=== PATIENT | male | born 1945 | race Caucasian/White ===

== ENCOUNTER 2017-03-26 02:56 | Emergency (ER) | payer MEDICARE, BC ==
[~2017-03-26] VITALS: Ht 182.9 cm; Wt 83.9 kg
[~2017-03-26 02:56] MED LIST: AMLO2.5T PO; ASPI325T8 PO; CRESTOR10 MG PO; TELM40TA PO
[2017-03-26] MEDS ORDERED: fentaNYL PF VIAL 100 MCG/2 ML VIAL IV PRN (03:30)
[2017-03-26 03:37] LABS: BASO # 0.1 x10^3/uL (0.0-0.2); BASO % 1 % (0-3); EOS % 2 % (0-3); HEMATOCRIT 50.6 % (39.0-53.0); HEMOGLOBIN 17.4 g/dL (13.0-17.5); LYMPH # 1.3 x10^3/uL (1.0-4.8); LYMPH % 14 % (24-48); MEAN CORPUSCULAR HEMOGLOBIN 31 pg (25-35); MEAN CORPUSCULAR HGB CONC 34 g/dL (31-37); MEAN CORPUSCULAR VOLUME 89 fL (79-100); MONO % 9 % (0-9); NEUT % 75 % (31-73); PLATELET COUNT 199 x10^3/uL (140-400); RED BLOOD COUNT 5.69 x10^6/uL (4.30-5.70); RED CELL DISTRIBUTION WIDTH 12.8 % (11.5-14.5); WHITE BLOOD COUNT 9.5 x10^3/uL (4.0-11.0)
[2017-03-26 03:45] LABS: BILIRUBIN,URINE NEGATIVE (NEG); GLUCOSE,URINE NEGATIVE (NEG); NITRITE,URINE NEGATIVE (NEG); PH,URINE 6.5; PROTEIN,URINE NEGATIVE (NEG-TRACE); UROBILINOGEN,URINE 0.2 mg/dL (0.2 mg/dL)
[2017-03-26 03:47] LABS: CALCIUM 9.3 mg/dL (8.5-10.1); GFR 73.7; POTASSIUM 3.7 mmol/L (3.5-5.1)
[2017-03-26 03:52] LABS: ALBUMIN/GLOBULIN RATIO 1.2 (1.0-1.7); TOTAL BILIRUBIN 0.8 mg/dL (0.2-1.0); TOTAL PROTEIN 7.4 g/dL (6.4-8.2)
[2017-03-26 03:52] LABS: BACTERIA,URINE 0 /HPF (0-FEW); RBC,URINE TNTC /HPF (0-2); WBC,URINE OCC /HPF (0-4)
[2017-03-26] MEDS ORDERED: IV NORMAL SALINE 1000ML BAG 1,000 ML IV SCH (04:00)
--- NOTE | 2017-03-26 04:03 | ED.ADGEN ---
Past Medical History Past Medical History: High Cholesterol, Hypertension, [place] Past Surgical History: Other Additional Past Surgical Histo: right shoulder surgery, hernia repair Alcohol Use: None Drug Use: None Adult General Chief Complaint Chief Complaint: BACK PAIN OR INJURY HPI HPI Patient is a 71 year old man, history of hypertension, hypercholesterolemia, [place] , renal calculi, who presents to the emergency department with a complaint of right-sided back pain. Patient denies any discrete injury, states however that he began noticing symptoms yesterday after he was mowing the lawn. He states that he was awoken from sleep by an aching stabbing pain located in the right flank, which is now resolved, and that he "broke into a cold sweat". He denies any urinary complaints, states that he has not had any nausea or vomiting, any diarrhea, any weakness, numbness, tingling, changes in bowel or bladder habits or loss of control, rashes, chest pain, shortness breath, or swelling of the extremities. Patient states he is experiencing no pain currently. Has not noted any hematuria, discharge or pain with urination. Review of Systems Review of Systems Constitutional: Denies fever or chills. [] Eyes: Denies change in visual acuity. [] HENT: Denies nasal congestion or sore throat. [] Respiratory: Denies cough or shortness of breath. [] Cardiovascular: Denies chest pain or edema. [] GI: Denies abdominal pain, nausea, vomiting, bloody stools or diarrhea. [] : Denies dysuria. [] Musculoskeletal: Right flank pain, no joint pain. Integument: Denies rash. [] Neurologic: Denies headache, focal weakness or sensory changes. [] Endocrine: Denies polyuria or polydipsia. [] Lymphatic: Denies swollen glands. [] Psychiatric: Denies depression or anxiety. [] Current Medications Current Medications Current Medications Medications (Trade) Dose Ordered Sig/Conchita Start Time Stop Time Status Last Admin Dose Admin Fentanyl Citrate (Fentanyl 2ml Vial) 25 mcg PRN Q15MIN PRN 03/26/17 03:30 03/26/17 05:02 DC 03/26/17 03:51 25 MCG Ketorolac Tromethamine (Toradol) 10 mg 1X ONCE 03/26/17 05:00 03/26/17 05:01 DC 03/26/17 04:36 10 MG Ondansetron HCl (Zofran) 4 mg 1X ONCE 03/26/17 05:00 03/26/17 05:01 DC 03/26/17 04:36 4 MG Oxycodone HCl (Roxicodone) 10 mg 1X ONCE 03/26/17 05:00 03/26/17 05:01 DC 03/26/17 04:36 10 MG Sodium Chloride 1,000 ml @ 1,000 mls/hr Q1H 03/26/17 04:00 03/26/17 04:59 DC 03/26/17 03:51 1,000 MLS/HR Tamsulosin HCl (Flomax) 0.4 mg 1X ONCE 03/26/17 05:00 03/26/17 05:01 DC 03/26/17 04:36 0.4 MG Allergies Allergies Allergies Coded Allergies Type Severity Reaction Last Updated Verified acetaminophen Adverse Reaction Intermediate nausea and vomiting 02/07/15 Yes propoxyphene Adverse Reaction Intermediate nausea and vomiting 02/07/15 Yes Physical Exam Physical Exam Constitutional: Well developed, well nourished, no acute distress, non-toxic appearance. [] HENT: Normocephalic, atraumatic, bilateral external ears normal, oropharynx moist, no oral exudates, nose normal. [] Eyes: PERRLA, EOMI, conjunctiva normal, no discharge. [] Neck: Normal range of motion, no tenderness, supple, no stridor. [] Cardiovascular:Heart rate regular rhythm, no murmur, S1, S2, no rubs or gallops. [] Lungs & Thorax: Bilateral breath sounds clear to auscultation, no wheezing, rhonchi, rales. No chest or crepitus or tenderness. [] Abdomen: Bowel sounds normal, soft, no tenderness, no rebound, rigidity, no guarding, no masses, no pulsatile masses. [] Skin: Warm, dry, no erythema, no rash. [] Back: No midline or paraspinal tenderness, no CVA tenderness. Unable to reproduce symptoms with palpation.[] Extremities: No tenderness, no cyanosis, no clubbing, ROM intact, no edema. [] Neurologic: Alert and oriented X 3, normal motor function, normal sensory function, no focal deficits noted. [] Psychologic: Affect normal, judgement normal, mood normal. [] Current Patient Data Vital Signs Vital Signs Date Time Temp Pulse Resp B/P (MAP) Pulse Ox O2 Delivery O2 Flow Rate FiO2 03/26/17 04:17 56 16 142/71 (94) 96 Room Air 03/26/17 03:10 97.5 97.5 Lab Values Laboratory Tests Test 03/26/17 03:25 03/26/17 03:29 White Blood Count 9.5 x10^3/uL (4.0-11.0) Red Blood Count 5.69 x10^6/uL (4.30-5.70) Hemoglobin 17.4 g/dL (13.0-17.5) Hematocrit 50.6 % (39.0-53.0) Mean Corpuscular Volume 89 fL (79-100) Mean Corpuscular Hemoglobin 31 pg (25-35) Mean Corpuscular Hemoglobin Concent 34 g/dL (31-37) Red Cell Distribution Width 12.8 % (11.5-14.5) Platelet Count 199 x10^3/uL (140-400) Neutrophils (%) (Auto) 75 % (31-73) H Lymphocytes (%) (Auto) 14 % (24-48) L Monocytes (%) (Auto) 9 % (0-9) Eosinophils (%) (Auto) 2 % (0-3) Basophils (%) (Auto) 1 % (0-3) Neutrophils # (Auto) 7.1 x10^3uL (1.8-7.7) Lymphocytes # (Auto) 1.3 x10^3/uL (1.0-4.8) Monocytes # (Auto) 0.8 x10^3/uL (0.0-1.1) Eosinophils # (Auto) 0.2 x10^3/uL (0.0-0.7) Basophils # (Auto) 0.1 x10^3/uL (0.0-0.2) Sodium Level 142 mmol/L (136-145) Potassium Level 3.7 mmol/L (3.5-5.1) Chloride Level 104 mmol/L (98-107) Carbon Dioxide Level 28 mmol/L (21-32) Anion Gap 10 (6-14) Blood Urea Nitrogen 13 mg/dL (8-26) Creatinine 1.0 mg/dL (0.7-1.3) Estimated GFR (Cockcroft-Gault) 73.7 BUN/Creatinine Ratio 13 (6-20) Glucose Level 98 mg/dL (70-99) Calcium Level 9.3 mg/dL (8.5-10.1) Total Bilirubin 0.8 mg/dL (0.2-1.0) Aspartate Amino Transferase (AST) 30 U/L (15-37) Alanine Aminotransferase (ALT) 35 U/L (16-63) Alkaline Phosphatase 108 U/L (46-116) Total Protein 7.4 g/dL (6.4-8.2) Albumin 4.0 g/dL (3.4-5.0) Albumin/Globulin Ratio 1.2 (1.0-1.7) Urine Collection Type Unknown Urine Color Yellow Urine Clarity Clear Urine pH 6.5 Urine Specific [place] 1.015 Urine Protein Negative mg/dL (NEG-TRACE) Urine Glucose (UA) Negative mg/dL (NEG) Urine Ketones (Stick) Negative mg/dL (NEG) Urine Blood Large (NEG) Urine Nitrite Negative (NEG) Urine Bilirubin Negative (NEG) Urine Urobilinogen Dipstick 0.2 mg/dL (0.2 mg/dL) Urine Leukocyte Esterase Negative (NEG) Urine RBC Tntc /HPF (0-2) Urine WBC Occ /HPF (0-4) Urine Squamous Epithelial Cells None /LPF Urine Bacteria 0 /HPF (0-FEW) Urine Mucus Mod /LPF Laboratory Tests 03/26/17 03:25 Laboratory Tests 03/26/17 03:25 EKG EKG ECG: Rhythm strip: Heart rate 62 bpm, sinus rhythm, no ectopy. As interpreted by me.[] Radiology/Procedures Radiology/Procedures [][facility] [address] [place] [address] IMAGING REPORT Signed PATIENT: JENNA BURROUGHS ACCOUNT: [id number] : 1945 LOCATION: ER AGE: 71 SEX: M EXAM STATUS: REG ER ORD. PHYSICIAN: MARIA GUADALUPE MARTIN DO REASON: R flank pain PROCEDURE: CT ABDOMEN PELVIS WO CONTRAST INDICATION: right flank pain COMPARISON: None. TECHNIQUE: Axial CT images obtained through the abdomen and pelvis without contrast. One or more of the following individualized dose reduction techniques were utilized for this examination: 1. Automated exposure control; 2. Adjustment of the mA and/or kV according to patient size; 3. Use of iterative reconstruction technique. FINDINGS: Limited assessment of solid organ structures and vasculature secondary to lack of intravenous contrast. Mild probable atelectasis at lung bases. Small hiatal hernia. Partial visualization of coronary artery calcific atherosclerosis. Moderate to severe calcific atherosclerosis. Moderate fat-containing inguinal hernias. No intrahepatic bile duct dilation. No peripancreatic edema. Splenic calcified granulomas. No left-sided hydronephrosis. Urinary bladder is largely decompressed. Nonobstructive right renal stones. There is also right-sided hydronephrosis and hydroureter with a suspected 2 mm right distal ureter stone. There is some induration of the fat anterior to the urinary bladder on the right. Colonic diverticulosis. Appendix does not appear grossly inflamed. No dilated loops of bowel to suggest obstruction. Degenerative changes spine. Mild scoliotic curvature of spine. Multilevel central canal and neural foraminal stenosis. IMPRESSION: Right-sided hydronephrosis and hydroureter with distal ureter stone. There is some soft tissue density seen anterior to the urinary bladder on the right of unknown etiology. Could be from causes such as confluent fibrosis within the region but would also correlate with history of trauma to ensure it is not from a small amount of blood in the area. Would consider obtaining a follow-up CT in a few months to ensure no growth to exclude neoplastic causes. Electronically signed by: Giacomo Wang MD (03/26/2017 4:04 AM) [facility] DICTATED and SIGNED BY: GIACOMO WANG MD DATE: 03/26/17 0356 CC: DARLENE ARMSTRONG MD; MARIA GUADALUPE MARTIN DO ~ Course & Med Decision Making Course & Med Decision Making Pertinent Labs and Imaging studies reviewed. (See chart for details) Patient patient's history and examination, with inability to elicit musculoskeletal symptoms, urinalysis obtained along with laboratory studies, and CT noncontrast of the abdomen and pelvis. Urinalysis revealed too numerous to count red blood cells, with no evidence of infection or other abnormalities. Patient patient's history and examination, concern for recurrent renal calculi. CT obtained, reveals a 2 mm renal calculi in the distal right ureter, with hydronephrosis and hydroureter. No evidence of surrounding fluid collection or inflammation. Patient also noted to have a tissue density in the anterior portion of the right bladder, concern for possible small amount of bleeding, versus a mass that could potentially be malignant. I did discuss findings as above with patient in detail at bedside. Discussed that patient will be a little to pass this calculus, as he has previously, due to the size, and will be prescribed medications to assist this process, including Zofran, naproxen, Flomax, and oxycodone. Patient was given a dose of oxycodone additional dose of fentanyl in the ED, resting comfortably at this time. Patient did tolerate oral meds without issue. Also discussed with patient the importance of follow-up for additional evaluation of this soft tissue density to rule out any concerning pathology. Patient does have no history of trauma, and has not experiencing any abdominal pain. We discussed concerning symptoms that prompt return to the ED, importance of follow-up, and medication directions and precautions. Patient voiced understanding and agreement with plan as stated. Did tolerate medications as stated without issue, comfortable at time of discharge home with with plan and precautions as above, prescriptions as stated. Dragon Disclaimer Dragon Disclaimer This electronic medical record was generated, in whole or in part, using a voice recognition dictation system. Departure Impression: Primary Impression: Hydronephrosis with ureteral calculus Disposition: HOME, SELF-CARE Condition: IMPROVED Scripts Ondansetron Hcl (ZOFRAN) 4 Mg Tablet 1 TAB PO PRN Q8HRS Y for NAUSEA/VOMITING, #12 TAB Prov: MARIA GUADALUPE MARTIN DO 03/26/17 Tamsulosin Hcl (FLOMAX) 0.4 Mg Cap.er.24h 0.4 MG PO DAILY for 3 Days, #3 TAB Prov: MARIA GUADALUPE MARTIN DO 03/26/17 Oxycodone Hcl (OXYCODONE HCL) 5 Mg Tablet 1-2 TAB PO PRN Q6HRS Y for PAIN, #12 TAB Prov: MARIA GUADALUPE MARTIN DO 03/26/17 Naproxen (NAPROXEN) 250 Mg Tablet 250 MG PO PRN TID Y for PAIN, #10 Prov: MARIA GUADALUPE MARTIN DO 03/26/17 MARIA GUADALUPE MARTIN DO Mar 26, 2017 04:03
--- NOTE | 2017-03-26 04:08 | RAD ---
INDICATION: right flank pain COMPARISON: None. TECHNIQUE: Axial CT images obtained through the abdomen and pelvis without contrast. One or more of the following individualized dose reduction techniques were utilized for this examination: 1. Automated exposure control; 2. Adjustment of the mA and/or kV according to patient size; 3. Use of iterative reconstruction technique. FINDINGS: Limited assessment of solid organ structures and vasculature secondary to lack of intravenous contrast. Mild probable atelectasis at lung bases. Small hiatal hernia. Partial visualization of coronary artery calcific atherosclerosis. Moderate to severe calcific atherosclerosis. Moderate fat-containing inguinal hernias. No intrahepatic bile duct dilation. No peripancreatic edema. Splenic calcified granulomas. No left-sided hydronephrosis. Urinary bladder is largely decompressed. Nonobstructive right renal stones. There is also right-sided hydronephrosis and hydroureter with a suspected 2 mm right distal ureter stone. There is some induration of the fat anterior to the urinary bladder on the right. Colonic diverticulosis. Appendix does not appear grossly inflamed. No dilated loops of bowel to suggest obstruction. Degenerative changes spine. Mild scoliotic curvature of spine. Multilevel central canal and neural foraminal stenosis. IMPRESSION: Right-sided hydronephrosis and hydroureter with distal ureter stone. There is some soft tissue density seen anterior to the urinary bladder on the right of unknown etiology. Could be from causes such as confluent fibrosis within the region but would also correlate with history of trauma to ensure it is not from a small amount of blood in the area. Would consider obtaining a follow-up CT in a few months to ensure no growth to exclude neoplastic causes. Electronically signed by: Jorge Acuña MD (03/26/2017 4:04 AM) [facility]
[2017-03-26 04:17] VITALS: BP 142/71
[2017-03-26] MEDS ORDERED: ONDA4TAB7 PO (04:39)
[2017-03-26] MEDS ORDERED: NAPR250T6 PO (04:39)
[2017-03-26] MEDS ORDERED: OXYC5TAB95 PO (04:39)
[2017-03-26] MEDS ORDERED: TAMS0.4C97 PO (04:39)
[2017-03-26] MEDS ORDERED: oxyCODONE IR 5 MG TABLET PO ONE (05:00)
[2017-03-26] MEDS ORDERED: ONDANSETRON PF 4 MG/2 ML VIAL. IV ONE (05:00)
[2017-03-26] MEDS ORDERED: TAMSULOSIN 0.4 MG CAP.ER.24H. PO ONE (05:00)
[2017-03-26] MEDS ORDERED: KETOROLAC 15 MG/ML VIAL. IV ONE (05:00)
== END 2017-03-26 05:02 | disposition home or self-care (01) ==
LOC: ER 02:56
DX: N13.2 Hydronephrosis with renal and ureteral calculous obstruction (principal); I10 Essential (primary) hypertension; E78.00 Pure hypercholesterolemia, unspecified; I25.2 Old myocardial infarction
CPT/HCPCS: 36415; 74176; 80053; 81001; 85025; 96361; 96374; 96375; 99285; J1885; J2405; J3010; J7030

== ENCOUNTER → 2019-03-09 | Outpatient (CLI) | payer MEDICARE, BC ==
[~2019-03-09] MED LIST changes: -AMLO2.5T PO; +AMLO2.5T5 PO; +NAPR250T6 PO; +ONDA4TAB7 PO; +OXYC5TAB4 PO; +TAMS0.4C97 PO
--- NOTE | 2019-03-09 13:07 | KCIC ---
MRI Lumbar Spine without contrast History: Lumbar radiculopathy, chronic low back pain worse this year especially with walking Technique: Multiplanar, multi sequential noncontrast MR imaging was performed of the lumbar spine. Comparison: None Findings: There is transitional anatomy of the lumbar spine. For the purpose of this report, most inferior fully formed intervertebral disc space is considered L5-S1 with assumption of 5 lumbar type vertebral bodies. There is a rudimentary, incompletely formed intervertebral disc space at what is considered S1-S2. Lumbar vertebral body stature is overall maintained. There is multilevel variable advanced degenerative disc disease throughout lumbar spine. There is minimal posterior subluxation L5 relative to S1, L4 relative to L5, L3 relative to L4, L2 relative to L3. There is straightening of the lumbar spine, mild reversal of the lordotic curvature at L2. There is variable mild endplate edema greatest L3-4 and L5-S1 and to lesser degree at L4-5, L1-2, and T12-L1 likely reactive/degenerative in etiology. There is mild dextroscoliosis centered near L3. L1-L2: There is minimal disc osteophyte complex. There is mild indentation upon the ventral thecal sac. There is very mild narrowing of the far left lateral recess. Neural foramina are adequate. L2-L3: There is very minimal disc osteophyte complex. There is minimal indentation upon the ventral thecal sac greater in the left lateral recess, spinal canal not significantly narrowed. There is mild facet degenerative change. Neural foramina are adequate. Disc osteophyte complex is near the extraforaminal right L2 nerve root without significant displacement. L3-L4: There is minimal disc osteophyte complex superimposed on the posteriorly subluxed L3 vertebral body margin with mild indentation upon the ventral thecal sac greater in the left lateral recess. There is mild narrowing of the far left lateral recess with degree of contact descending left L4 nerve root. There is mild facet degenerative change and buckling of the ligamentum flavum. There is moderate to severe narrowing of the left neural foramen by facet and disc osteophyte complex, disc osteophyte complex also near the extraforaminal left L3 nerve root without significant displacement. Right neural foramen is overall adequate. L4-L5: There is minimal disc osteophyte complex and bulge, mild indentation upon the ventral thecal sac. There is mild narrowing of the far left lateral recess, bulge also near the descending right L5 nerve root without significant displacement. There is mild buckling of the ligamentum flavum greater on the left. There is mild facet hypertrophic change. There is moderate to severe narrowing of the left neural foramen by disc osteophyte complex and facet, disc osteophyte complex also contacting undersurface of proximal extraforaminal left L4 nerve root. There is moderate narrowing of the right neural foramen. L5-S1: There is disc osteophyte complex, superimposed approximate 2-3 mm AP protrusion greatest centrally and in the right lateral recess. There is moderate right lateral recess stenosis and contact of the descending right S1 nerve root with mild posterior displacement. There is mild buckling of the ligamentum flavum and mild to moderate facet degenerative change. There is severe narrowing of the right neural foramen by disc osteophyte complex and facet with impingement exiting right L5 nerve root extending to extraforaminal region. There is severe narrowing of the left neural foramen with contact exiting left L5 nerve root by disc osteophyte complex extending to proximal extraforaminal region. Impression: 1. There appears to be transitional anatomy, most inferior fully formed intervertebral disc space considered L5-S1. There is multilevel advanced lumbar degenerative disc disease, multilevel spondylosis, and abnormal alignment as stated. There is multilevel facet degenerative change. There is lumbar dextroscoliosis. 2. There is variable lateral recess stenosis as stated greatest on the right L5-S1 at which there is contact and mild posterior displacement of the descending right S1 nerve root, lesser degree of mild left lateral recess stenosis L4-L5 and L3-L4. 3. There is multilevel neural foramina compromise, severe narrowing bilaterally greater on the right at L5-S1 with contact exiting L5 nerve roots. There is other neural foramina compromise such as left greater than right at L4-5 and on the left at L3-4. Electronically signed by: Mp Mesa MD (03/09/2019 1:03 PM) [facility]
== END | disposition home or self-care (01) ==
LOC: KCIC MRI 09:47
PROVIDERS: ATTEND Anesthesiology
DX: M51.16 Intervertebral disc disorders with radiculopathy, lumbar region (principal); M53.3 Sacrococcygeal disorders, not elsewhere classified; M48.07 Spinal stenosis, lumbosacral region; M47.26 Other spondylosis with radiculopathy, lumbar region; M47.818 Spondylosis without myelopathy or radiculopathy, sacral and sacrococcygeal region; M25.78 Osteophyte, vertebrae; M89.38 Hypertrophy of bone, other site; G89.29 Other chronic pain; M53.2X7 Spinal instabilities, lumbosacral region; Z88.8 Allergy status to other drugs, medicaments and biological substances
CPT/HCPCS: 72148

== ENCOUNTER → 2020-01-23 | Outpatient (CLI) | payer MEDICARE, BC ==
--- NOTE | 2020-01-23 11:27 | KCIC ---
MRI Lumbar Spine without contrast History: Low back pain, leg heaviness Technique: Multiplanar, multi sequential noncontrast MR imaging was performed of the lumbar spine. Comparison: None Findings: Lumbar vertebral body stature is overall maintained. There appears to be transitional anatomy of the lumbar spine. For the purpose of this report, there is rudimentary intervertebral disc space at what is considered S1-S2, assumption of 5 lumbar type vertebral bodies. Most inferior fully formed intervertebral disc space is considered L5-S1. There is advanced degenerative disc disease throughout the lumbar spine. There is minimal posterior subluxation L5 relative to S1, L4 relative to L5 and L3 relative to L4, and L2 relative to L3. There is mild reversal of the lordotic curvature centered near L2-3. There is degenerative endplate change or bleed throughout lumbar spine greatest L2-3 and L5-S1. There is also variable endplate edema other than sparing of L2-3 probably reactive/degenerative in etiology. Conus terminates at T12-L1. There is mild dextroscoliosis centered near L4. L1-L2: There is very minimal disc osteophyte complex and bulge slightly indenting the ventral thecal sac, very mild narrowing of the far left lateral recess. Neural foramina are adequate. L2-L3: There is minimal disc osteophyte complex and bulge slightly indenting the ventral thecal sac. There is very mild narrowing of the far left lateral recess. There is mild facet degenerative change. Neural foramina are adequate. L3-L4: There is minimal disc osteophyte complex indenting the ventral thecal sac greater in the far lateral recess. There is mild buckling of the ligamentum flavum and facet hypertrophic change. There is mild narrowing of the far left lateral recess with disc osteophyte complex contacting the ventral surface of the descending left L4 nerve root. There is moderate narrowing of the left neural foramen by facet and disc osteophyte complex, also disc osteophyte complex contacting undersurface of the proximal extraforaminal left L3 nerve root. Right neural foramen is adequate, disc osteophyte complex near the extraforaminal right L3 nerve root without displacement. L4-L5: There is minimal disc osteophyte complex and bulge slightly indenting the ventral thecal sac. There is mild buckling of the ligamentum flavum on the left. There is mild to moderate facet hypertrophic change. There is very mild narrowing of the far left lateral recess. There is moderate bilateral neural foramina compromise by facets and disc osteophyte complex, left extraforaminal disc osteophyte complex and shallow protrusion contacting the undersurface of the extraforaminal left L4 nerve root. L5-S1: There is disc osteophyte complex and superimposed approximate 2 to 3 mm AP protrusion, mild indentation upon the ventral thecal sac. There is [id number] buckling of the ligamentum flavum. There is moderate to severe right facet degenerative change, to a lesser degree on the left. There is mild to moderate narrowing of the far lateral recesses bilaterally with degree of contact of the descending S1 nerve roots greater on the right. There is severe, right greater than left neural foramina compromise with impingement of the exiting L5 nerve roots bilaterally greater on the right. There is probable component of protrusion in the inferior right neural foramen superimposed on disc osteophyte complex with impingement of the exiting right L5 nerve root extending to the proximal extraforaminal region. Impression: 1. There is transitional anatomy of the lumbar spine as described, rudimentary intervertebral disc space at what is considered S1-S2 with the most inferior fully formed intervertebral disc space considered L5-S1. 2. There is multilevel lumbar neural foramina compromise, severe narrowing bilaterally at L5-S1 with impingement of the exiting L5 nerve roots greater on the right, lesser degree of moderate narrowing bilaterally at L4-5 and on the left at L3-4. 3. There is multilevel advanced lumbar degenerative disc disease, variable multilevel endplate edema likely reactive/degenerative in etiology. 4. There is multilevel mild abnormal alignment, multilevel facet degenerative change. Electronically signed by: Mp Mesa MD (01/23/2020 11:23 AM) [id number]
== END ==
LOC: KCIC MRI 08:54
PROVIDERS: ATTEND Internal Medicine
DX: M51.16 Intervertebral disc disorders with radiculopathy, lumbar region (principal); M48.061 Spinal stenosis, lumbar region without neurogenic claudication; M25.78 Osteophyte, vertebrae
CPT/HCPCS: 72148